=== PATIENT | male | born 1980 | race American Indian/Alaskan Native ===

== ENCOUNTER 2017-11-20 23:25 | Emergency (ER) | payer MEDICAID, OTHER ==
[2017-11-21 00:22] VITALS: BMI 23.0
[2017-11-21] MEDS ORDERED: Sodium Chloride 0.9% 1,000 ML IV STA (00:25)
[2017-11-21] MEDS ORDERED: Multivitamin (MVI) 10 ML, Thiamine 100 MG, Folic Acid 1 MG in Sodium Chloride 0.9% 1,00... IV ONE (00:25)
--- NOTE | 2017-11-21 00:29 | ED PDOC ---
Arrival/HPI - General Time Seen by Provider: 11/20/17 23:52 Historian: Patient - History of Present Illness Narrative History of Present Illness (Text): 11/21/17 00:29 A 37 year old male, with a history of IV drug use and alcoholism, presents to the emergency department complaining of mid epigastric abdominal pain. Patient reports pain radiates to his back, which he states is a chronic complaint. Patient denies any other complaints at this time. Symptom Onset: Sudden Symptom Course: Unchanged Activities at Onset: Rest Context: Home Past Medical History - Provider Review Nursing Documentation Reviewed: Yes - Infectious Disease Hx of Infectious Diseases: None - Tetanus Immunization Tetanus Immunization: Unknown - Cardiac Hx Hypertension: Yes - Pulmonary Hx Asthma: Yes - HEENT Hx HEENT Disorder: No - Renal Hx Renal Disorder: No - Endocrine/Metabolic Hx Endocrine Disorders: No - Hematological/Oncological Hx Blood Disorders: No - Integumentary Hx Dermatological Disorder: No - Musculoskeletal/Rheumatological Hx Musculoskeletal Disorders: No - Gastrointestinal Hx Gastritis: Yes Hx Pancreatitis: Yes - Psychiatric Hx Depression: Yes Hx Substance Use: No - Past Surgical History Past Surgical History: No Previous - Anesthesia Hx Anesthesia: No - Suicidal Assessment Feels Threatened In Home Enviroment: No Family/Social History - Physician Review Nursing Documentation Reviewed: Yes Family/Social History: No Known Family HX Smoking Status: Light Smoker < 10 Cigarettes Daily Hx Alcohol Use: Yes Amount per day: 27 Hx Substance Use: No Substance used: pcp Hx Substance Use Treatment: Yes Allergies/Home Meds Allergies/Adverse Reactions: Allergies shellfish derived Allergy (Severe, Verified 11/19/17 23:08) ANAPHYLAXIS shrimp Allergy (Severe, Verified 11/19/17 23:08) ANAPHYLAXIS Home Medications: Home Meds Medication Instructions Recorded Confirmed No Known Home Med 10/31/17 11/21/17 Review of Systems - Physician Review All systems were reviewed & negative as marked: Yes - Review of Systems Gastrointestinal: Abdominal Pain (mid epigastric) Musculoskeletal: Back Pain Physical Exam Vital Signs Reviewed: Yes Vital Signs Temp Pulse Resp BP Pulse Ox 11/21/17 05:30 98.7 F 87 20 138/72 97 Appearance: Positive for: Comfortable, Other (alcohol on breath) Pain Distress: None Mental Status: Positive for: Alert and Oriented X 3 - Systems Exam Head: Present: Atraumatic, Normocephalic Pupils: Present: PERRL Extroacular Muscles: Present: EOMI Conjunctiva: Present: Normal Mouth: Present: Moist Mucous Membranes Neck: Present: Normal Range of Motion Respiratory/Chest: Present: Clear to Auscultation, Good Air Exchange. No: Respiratory Distress, Accessory Muscle Use Cardiovascular: Present: Regular Rate and Rhythm, Normal S1, S2. No: Murmurs Abdomen: Present: Normal Bowel Sounds. No: Tenderness, Distention, Peritoneal Signs Back: Present: Normal Inspection Upper Extremity: Present: Normal Inspection. No: Cyanosis, Edema Lower Extremity: Present: Normal Inspection. No: Edema Neurological: Present: GCS=15, CN II-XII Intact, Speech Normal Skin: Present: Warm, Dry, Normal Color. No: Rashes Psychiatric: Present: Alert, Oriented x 3, Normal Insight, Normal Concentration Medical Decision Making ED Course and Treatment: 11/21/17 00:27 Impression: A 37 year old male with mid epigastric abdominal pain radiating to back. Plan: -- labs -- IV fluids, Zofran -- Urinalysis -- Reassess and disposition Prior Visits: Notes and results from previous visits were reviewed. Patient was last seen in the emergency department on 11/19/17 for evaluation of alcohol intoxication. Progress Notes: 11/21/17 06:11 On re-evaluation, patient feels better and is in no acute distress. I have discussed the results and plan with the patient, who expresses understanding. Patient in agreement with plan to be discharged home. Patient is stable for discharge. Patient was instructed to follow up with physician or return if symptoms worsen or new concerning symptoms arise. - Lab Interpretations Lab Results: 11/21/17 01:05 11/21/17 01:05 Lab Results 11/21/17 01:05: Alcohol, Quantitative 329 H* 11/21/17 01:05: Sodium 145, Potassium 4.0, Chloride 104, Carbon Dioxide 28, Anion Gap 17, BUN 9, Creatinine 0.7 L, Est GFR ( Amer) > 60, Est GFR (Non -Af Amer) > 60, Random Glucose 102, Calcium 9.0, Total Bilirubin 0.6, AST 62 H D , ALT 41, Alkaline Phosphatase 118, Total Protein 7.5, Albumin 4.1, Globulin 3.4 , Albumin/Globulin Ratio 1.2, Lipase 320 H 11/21/17 01:05: WBC 4.5, RBC 4.34, Hgb 12.3 L, Hct 36.6 L, MCV 84.3, MCH 28.3, MCHC 33.6, RDW 16.1 H, Plt Count 269, MPV 8.8, Gran % 32.5 L, Lymph % (Auto) 58.2 H, [place] % (Auto) 7.3 H, Eos % (Auto) 0.7 L, Baso % (Auto) 1.3, Gran # 1.47 , Lymph # (Auto) 2.6, [place] # (Auto) 0.3, Eos # (Auto) 0.0, Baso # (Auto) 0.06 I have reviewed the lab results: Yes - Medication Orders Current Medication Orders: Multivitamins/Vitamin C 10 ml/Thiamine HCl 100 mg/ Folic Acid 1 mg/ Sodium Chloride 1,011.2 mls @ 100 mls/hr IV .Q10H7M ONE Stop: 11/21/17 10:31 Last Admin: 11/21/17 01:36 Dose: 100 mls/hr eMAR Start Stop Document 11/21/17 01:36 RG (Rec: 11/21/17 01:39 [id number]) Intravenous Solution Start Date 11/21/17 Start Time 01:36 Discontinued Medications Sodium Chloride (Sodium Chloride 0.9%) 1,000 mls @ 999 mls/hr IV .Q1H1M STA Stop: 11/21/17 01:25 Last Admin: 11/21/17 01:41 Dose: 999 mls/hr eMAR Start Stop Document 11/21/17 01:41 RG (Rec: 11/21/17 01:41 [id number]) Intravenous Solution Start Date 11/21/17 Start Time 01:41 Ondansetron HCl (Zofran Inj) 8 mg IVP STAT STA Stop: 11/21/17 00:26 Last Admin: 11/21/17 01:39 Dose: 8 mg IVP Administration Document 11/21/17 01:39 (Rec: 11/21/17 01:39 [id number]) Charges for Administration # of IVP Administrations 1 - 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 - Scribe Statement The provider has reviewed the documentation as recorded by the Jhony Philip Provider Scribe Attestation: All medical record entries made by the Scribe were at my direction and personally dictated by me. I have reviewed the chart and agree that the record accurately reflects my personal performance of the history, physical exam, medical decision making, and the department course for this patient. I have also personally directed, reviewed, and agree with the discharge instructions and disposition. Disposition/Present on Arrival - Present on Arrival Any Indicators Present on Arrival: Yes History of DVT/PE: No History of Uncontrolled Diabetes: Yes Urinary Catheter: No History Surgical Site Infection Following: None - Disposition Have Diagnosis and Disposition been Completed?: Yes Diagnosis: Alcohol intoxication, Alcohol dependence, Abdominal pain, Epigastric abdominal pain Disposition: HOME/ ROUTINE Disposition Time: 06:06 Patient Plan: Discharge Patient Problems: Current Active Problems Problem Status Onset Alcohol intoxication Acute Alcohol dependence Acute Abdominal pain Acute Epigastric abdominal pain Acute Condition: GOOD Discharge Instructions (ExitCare): Acute Abdomen (Belly Pain), Adult (DC), Alcohol Abuse and Alcoholism (DC) Additional Instructions: .... You have to stop drinking alcohol if you want your belly pain to go away. Brad- Dr. Nikolay Angel Referrals: Marina Stoner [Primary Care Provider] - Follow up with primary
[2017-11-21 01:18] LABS: BASO # 0.06 K/mm3 (0.0-2.0); BASO % 1.3 % (0.0-3.0); EOS % 0.7 % (1.5-5.0); GRAN # 1.47 (1.4-6.5); GRAN % 32.5 % (50.0-68.0); HEMOGLOBIN 12.3 g/dL (14.0-18.0); LYMPH # 2.6 (1.2-3.4); LYMPH % 58.2 % (22.0-35.0); MEAN CELL VOLUME 84.3 fl (80.0-105.0); MEAN CORPUSCULAR HEMOGLOBIN 28.3 pg (25.0-35.0); MEAN CORPUSCULAR HGB CONC 33.6 g/dl (31.0-37.0); MEAN PLATELET VOLUME 8.8 fl (7.0-11.0); MONO # 0.3 (0.1-0.6); MONO % 7.3 % (1.0-6.0); RBC 4.34 10^6/uL (3.5-6.1); RED CELL DISTRIBUTION WIDTH 16.1 % (11.5-14.5); WHITE BLOOD COUNT 4.5 10^3/ul (4.5-11.0)
[2017-11-21 01:39] LABS: ALB/GLOB RATIO 1.2 (1.1-1.8); ALBUMIN 4.1 g/dL (3.0-4.8); ALT/SGPT 41 U/L (7-56); AST/SGOT 62 U/L (17-59); BLOOD UREA NITROGEN 9 mg/dL (7-21); GFR AFRICAN-AMERICAN > 60; GFR NON-AFRICAN AMERICAN > 60; LIPASE 320 U/L (23-300)
[2017-11-21 05:51] VITALS: TEMP 98.7; O2SAT 97
[2017-11-21 06:39] VITALS: BP 122/72; PULSE 83; RESP 16
== END 2017-11-21 06:30 | disposition home or self-care (01) ==
LOC: ED 23:25
DX: F10.229 Alcohol dependence with intoxication, unspecified (principal); R10.13 Epigastric pain; I10 Essential (primary) hypertension; F17.210 Nicotine dependence, cigarettes, uncomplicated
CPT/HCPCS: 80053; 80320; 83690; 85025; 96365; 96366; 96375; 99285; J2405; J3411; J7040